=== PATIENT | female | born 1970 | race Caucasian/White ===

== ENCOUNTER 2023-08-31 13:31 | Emergency (ER) | payer OTHER, SELFPAY ==
--- NOTE | ~2023-08-31 | XR_ITS ---
XR shoulder RT min 2V 08/31/2023 14:20 Indication: Limited range of motion Procedure: 4 views right shoulder Comparison: No prior studies for comparison. Findings: There is polyarticular osteoarthritis, moderate-severe at the glenohumeral joint and mild a t the acromioclavicular joint. No acute fracture or traumatic malalignment. No soft tissue abnormalit y. No foreign bodies. Lung parenchyma unremarkable. Impression: 1: Polyarticular osteoarthritis. Reviewed, dictated and finalized at location A. NSE TRAVEL ADMINISTRATOR Impression: 1: Polyarticular osteoarthritis.
[2023-08-31 13:52] VITALS: BP 124/75; PULSE 81; RESP 18; TEMP 36.6; O2SAT 98
--- NOTE | 2023-08-31 14:34 | ED.GENADULT ---
HPI - General Adult General Chief complaint: Extremity Problem,Nontraumatic Stated complaint: right shoulder pain Source: patient Mode of arrival: ambulatory Limitations: no limitations History of Present Illness HPI narrative: Patient presents for evaluation of right shoulder pain. She has a history of pain in multiple joints. She has psoriasis so thinks she may have psoriatic arthritis. She woke sleep this morning with a new type of pain in her right shoulder. She cannot think of any recent precipitating cause or injury. She indicates she has injured herself unintentionally in the past while sleeping through certain movements. She states that it is sharp and shooting. She has been using a scarf as a sling. At rest her pain is 5/10 severity but increases to 9/10 with certain movements. She describes the pain as dull and aching. She takes meloxicam and gabapentin for chronic pain. Related Data Home Medications Medication Instructions Recorded Confirmed amphetamine sulfate 20 mg 20 mg PO BID 08/31/23 08/31/23 disintegrating tablet budesonide-formoterol HFA 80 1 puff inhalation ONCE 08/31/23 08/31/23 mcg-4.5 mcg/actuation aerosol inhaler (Symbicort) duloxetine 60 mg capsule,delayed 60 mg PO DAILY 08/31/23 08/31/23 release ergocalciferol (vitamin D2) 1,250 1,250 mcg PO WEEKLY 08/31/23 08/31/23 mcg (50,000 unit) capsule (Vitamin D2) estradiol 0.0375 mg/24 hr weekly 1 patch transdermal WEEKLY 08/31/23 08/31/23 transdermal patch lamotrigine 100 mg tablet 100 mg PO DAILY 08/31/23 08/31/23 (Lamictal) lamotrigine 100 mg tablet,extended 100 mg PO DAILY 08/31/23 08/31/23 release 24 hr meloxicam 15 mg tablet 15 mg PO DAILY 08/31/23 08/31/23 multivit with minerals-iron 18 1 tablet PO DAILY 08/31/23 08/31/23 mg-folic ac 400 mcg-vit K 25 mcg tablet (Adults Multivitamin) progesterone 50 mg/mL 5 mg IM DAILY 08/31/23 08/31/23 intramuscular oil thyroid (pork) 60 mg tablet 60 mg PO DAILY 08/31/23 08/31/23 ([place] Thyroid) tumeric 100 mg-nomi 150 mg-olive 1 cap PO DAILY 08/31/23 08/31/23 50 mg-oreg 150 mg-caprylate capsule Allergies Allergy/AdvReac Type Severity Reaction Status Date / Time hydrocodone AdvReac Vomiting Verified 08/31/23 14:20 Review of Systems Review of Systems: CONSTITUTIONAL: Denies fever, chills, or sweats. EYES: Denies visual changes, redness, or discharge. ENT: Denies rhinorrhea, congestion, sore throat, or otalgia. CARDIOVASCULAR: Denies chest pain, palpitations, or edema. RESPIRATORY: Denies cough or dyspnea. GASTROINTESTINAL: Denies abdominal pain, nausea, vomiting, or diarrhea. GENITOURINARY: Denies dysuria or hematuria. SKIN: Denies rash or itching. MUSCULOSKELETAL: Reports right shoulder pain. Denies neck and back pain NEUROLOGIC: Denies headache, numbness, dizziness, or weakness. PSYCHIATRIC: Denies anxiety or depression. PMFSH Past Medical History Medical History (Updated 08/31/23 @ 15:03 by MONIKA Ferreira, ) Anxiety Hypothyroidism Psoriasis Vitamin D deficiency Surgical History Surgical History No pertinent past surgical history Family History Family History Mother Family history non-contributory Social History Social History Smoking packs per day: 0.25 Smoking cigarettes per day: 5.0 Years smoked: 40 Smoking pack-years: 10.00 Smoking status: Current every day smoker Alcohol intake: current Alcohol use details: social Gender identity (if verbalized by the patient): Female Spiritual care concerns: No Exam Narrative: GENERAL: Well-appearing, well-nourished, and in no acute distress. HEAD: Normocephalic, atraumatic. EYES: PERRLA and EOMI. ENT: Nares clear, no rhinorrhea or epistaxis. Mucous membranes moist. Oropharynx witho
== END 2023-08-31 15:40 | disposition home or self-care (01) ==
PROVIDERS: Emergency Provider Nurse Practitioner
DX: S46.911A Strain of unspecified muscle, fascia and tendon at shoulder and upper arm level, right arm, initial encounter (principal); X58.XXXA Exposure to other specified factors, initial encounter; M19.011 Primary osteoarthritis, right shoulder; L40.9 Psoriasis, unspecified; E03.9 Hypothyroidism, unspecified; E55.9 Vitamin D deficiency, unspecified
CPT/HCPCS: 73030; 99213; G0463

== ENCOUNTER 2023-09-03 15:14 | Emergency (ER) | payer OTHER, SELFPAY ==
--- NOTE | ~2023-09-03 | XR_ITS ---
XR hand LT min 3V 09/03/2023 15:56 Indication: Left hand pain Procedure: 4 views left hand Comparison: No prior studies for comparison. Findings: There is mild polyarticular osteoarthritis. No fracture or traumatic malalignment. No signi ficant soft tissue abnormality. No foreign bodies. Impression: 1: No acute bone or joint abnormality. Reviewed, dictated and finalized at location B. LER INSTALLER Impression: 1: No acute bone or joint abnormality.
[2023-09-03 15:26] VITALS: BP 121/77; PULSE 83; RESP 16; TEMP 36.6; O2SAT 96
--- NOTE | 2023-09-03 15:38 | ED.EXTPRO ---
HPI - Extremity Problem General Chief complaint: Extremity Problem,Nontraumatic Stated complaint: left hand /wrist swollen pain Time Seen by Provider: 09/03/23 15:38 Source: patient and RN notes reviewed Mode of arrival: ambulatory Limitations: no limitations History of Present Illness HPI Narrative: 53-year-old female presents concern for left wrist and hand swelling and pain. Reports symptoms started yesterday. Reports she tried tramadol without relief. She reports her hand and wrist hurt when she bends her fingers. She has a history of carpal tunnel that she had surgery for. She is right-handed. She reports symptoms started yesterday after she was caring a grocery bag with 3 of her left fingers. She denies any injury or problems with that gross she back. She has history of psoriatic arthritis. MD Complaint: extremity pain and extremity swelling Related Data Home Medications Medication Instructions Recorded Confirmed amphetamine sulfate 20 mg 20 mg PO BID 08/31/23 08/31/23 disintegrating tablet budesonide-formoterol HFA 80 1 puff inhalation ONCE 08/31/23 08/31/23 mcg-4.5 mcg/actuation aerosol inhaler (Symbicort) duloxetine 60 mg capsule,delayed 60 mg PO DAILY 08/31/23 08/31/23 release ergocalciferol (vitamin D2) 1,250 1,250 mcg PO WEEKLY 08/31/23 08/31/23 mcg (50,000 unit) capsule (Vitamin D2) estradiol 0.0375 mg/24 hr weekly 1 patch transdermal WEEKLY 08/31/23 08/31/23 transdermal patch lamotrigine 100 mg tablet 100 mg PO DAILY 08/31/23 08/31/23 (Lamictal) lamotrigine 100 mg tablet,extended 100 mg PO DAILY 08/31/23 08/31/23 release 24 hr meloxicam 15 mg tablet 15 mg PO DAILY 08/31/23 08/31/23 multivit with minerals-iron 18 1 tablet PO DAILY 08/31/23 08/31/23 mg-folic ac 400 mcg-vit K 25 mcg tablet (Adults Multivitamin) progesterone 50 mg/mL 5 mg IM DAILY 08/31/23 08/31/23 intramuscular oil thyroid (pork) 60 mg tablet 60 mg PO DAILY 08/31/23 08/31/23 ([place] Thyroid) tumeric 100 mg-nomi 150 mg-olive 1 cap PO DAILY 08/31/23 08/31/23 50 mg-oreg 150 mg-caprylate capsule Allergies Allergy/AdvReac Type Severity Reaction Status Date / Time hydrocodone AdvReac Vomiting Verified 08/31/23 14:20 Review of Systems Review of Systems: CONSTITUTIONAL: Denies malaise, chills, sweats, or fever. CARDIOVASCULAR: Denies chest pain, palpitations, or edema. RESPIRATORY: Denies cough or dyspnea. SKIN: Denies rash or itching, bruising, redness, swelling. MUSCULOSKELETAL: Reports left wrist and hand pain and swelling NEUROLOGIC: Denies numbness, weakness All systems reviewed & are unremarkable except as noted in HPI and below PMFSH Past Medical History Medical History (Updated 09/03/23 @ 16:15 by Zuleika Jimenez NP) Anxiety Hypothyroidism Psoriasis Vitamin D deficiency Surgical History Surgical History No pertinent past surgical history Family History Family History Mother Family history non-contributory Social History Social History Smoking packs per day: 0.25 Smoking cigarettes per day: 5.0 Years smoked: 40 Smoking pack-years: 10.00 Smoking status: Current every day smoker Alcohol intake: current Alcohol use details: social Gender identity (if verbalized by the patient): Female Spiritual care concerns: No Comments At time of signature, agree with nursing past medical, surgical, social and family history. There is no relevant family history pertinent to the presenting complaint Exam Narrative: GENERAL: Well-appearing, well-nourished, and in no acute distress. HEAD: Normocephalic, atraumatic. EYES: PERRLA, conjunctivae clear NECK: Supple. CHEST: Speaks in full sentences. No respiratory distress. HEART: Regular rate and rhythm. Normal and equal peripheral pulses.
--- NOTE | 2023-09-03 16:32 | PC.NURSE ---
When leaving patient thought her gill was too tight. This nurse checked and gill was not tight. I was able to get three fingers under gill without stretching the gill
== END 2023-09-03 16:25 | disposition home or self-care (01) ==
PROVIDERS: Emergency Provider Nurse Practitioner
DX: M79.642 Pain in left hand (principal); F17.210 Nicotine dependence, cigarettes, uncomplicated; E03.9 Hypothyroidism, unspecified; L40.9 Psoriasis, unspecified; E55.9 Vitamin D deficiency, unspecified; L40.50 Arthropathic psoriasis, unspecified
CPT/HCPCS: 73130; 99213; G0463

== ENCOUNTER 2024-04-19 16:19 | Emergency (ER) | payer OTHER, SELFPAY ==
--- NOTE | ~2024-04-19 | CT_ITS ---
EXAMINATION: CT abdomen pelvis w con DATE: 04/19/2024 18:50 INDICATION: epigastric pain, hx pancreatitis TECHNIQUE: Computed tomography (CT) of the abdomen and pelvis was performed without intravenous contr ast. Automated exposure control and iterative reconstruction technique were employed. The dose-length product was 1377.40 mGy-cm. COMPARISON: None. FINDINGS: Lower thorax: Dependent left lower lobe tree-in-bud opacities. Left lower lung scarring. Liver: Normal. Biliary/Gallbladder: Gallbladder is normal. No bile duct dilation. Pancreas: Somewhat irregular, 2.2 cm area of hypoenhancement in the pancreatic head. No pancreatic du ct dilation Spleen: Normal. Adrenals:No mass. Kidneys: No suspicious mass, obstructing stone, or hydronephrosis. GI tract: Mild distal esophageal and gastric wall edema No small or large bowel dilation. Normal appe ndix. Diverticulosis without diverticulitis. Mesentery/Peritoneum: No ascites, mass, or free air. Retroperitoneum: No mass. Pelvis: Urinary bladder wall thickening. Fibroid uterus. Normal ovaries. Soft Tissues: Soft tissues and body wall unremarkable. Bones: No acute osseous finding. IMPRESSION: Irregular, 2.2 cm area of hypoenhancement in the pancreatic head, may represent a focus of acute mil y edema/necrosis, a resolving pancreatic collection, or tumor. Recommend MRI without and with contras t for further evaluation and comparison to outside studies if available. Mild esophagitis/gastritis. Cystitis versus urinary bladder wall thickening from incomplete distention. Reviewed, dictated and finalized at location K. IMPRESSION: Irregular, 2.2 cm area of hypoenhancement in the pancreatic head, may represent a focus of acute early edema/necrosis, a resolving pancreatic collection, or t umor. Recommend MRI without and with contrast for further evaluation and compar kwadwo to outside studies if available. Mild esophagitis/gastritis. Cystitis versus urinary bladder wall thickening from incomplete distention.
[2024-04-19 16:22] VITALS: BP 112/80; PULSE 86; RESP 20; TEMP 36.2; O2SAT 97
--- NOTE | 2024-04-19 16:26 | ED.NAVMDI ---
HPI - Nausea/Vomiting/Diarrhea General Chief complaint: Nausea/Vomiting/Diarrhea Stated complaint: pancreatitis - dx 2 weeks ago Time Seen by Provider: 04/19/24 16:26 Focused HPI: This is a 54-year-old female with recent diagnosis of acute pancreatitis another facility who presents to the ED for chief complaint of epigastric abdominal pain and nausea. Reports that the pain is been ongoing for a couple of weeks and seems to be consistent. It has not really increased. Pain stays across the upper abdomen and radiates somewhat into the back. States the biggest issue right now is being unable to tolerate solid foods. She has appointment scheduled with GI in the coming weeks. Denies fevers, chills, GI bleeding symptoms, diarrhea, chest pain, shortness of breath, cough. Also endorses recent UTI and has been taking Macrobid. GENERAL: Well-appearing, well-nourished, and in no acute distress. HEAD: Normocephalic, atraumatic. CHEST: Clear to auscultation. No respiratory distress. HEART: Regular rate and rhythm. NEURO: Alert and oriented x3. Patient screened in triage and initial orders placed. Additional care and disposition to be based upon diagnostic testing and treatment. Source: patient Mode of arrival: ambulatory Limitations: no limitations Related Data Home Medications Medication Instructions Recorded Confirmed amphetamine sulfate 20 mg 20 mg PO BID 08/31/23 08/31/23 disintegrating tablet budesonide-formoterol HFA 80 1 puff inhalation ONCE 08/31/23 08/31/23 mcg-4.5 mcg/actuation aerosol inhaler (Symbicort) duloxetine 60 mg capsule,delayed 60 mg PO DAILY 08/31/23 08/31/23 release ergocalciferol (vitamin D2) 1,250 1,250 mcg PO WEEKLY 08/31/23 08/31/23 mcg (50,000 unit) capsule (Vitamin D2) estradiol 0.0375 mg/24 hr weekly 1 patch transdermal WEEKLY 08/31/23 08/31/23 transdermal patch lamotrigine 100 mg tablet 100 mg PO DAILY 08/31/23 08/31/23 (Lamictal) lamotrigine 100 mg tablet,extended 100 mg PO DAILY 08/31/23 08/31/23 release 24 hr meloxicam 15 mg tablet 15 mg PO DAILY 08/31/23 08/31/23 multivit with minerals-iron 18 1 tablet PO DAILY 08/31/23 08/31/23 mg-folic ac 400 mcg-vit K 25 mcg tablet (Adults Multivitamin) progesterone 50 mg/mL 5 mg IM DAILY 08/31/23 08/31/23 intramuscular oil thyroid (pork) 60 mg tablet 60 mg PO DAILY 08/31/23 08/31/23 ([place] Thyroid) turmeric 100 mg-nomi 150 1 cap PO DAILY 08/31/23 08/31/23 mg-olive 50 mg-oreg 150 mg-capryl capsule Allergies Allergy/AdvReac Type Severity Reaction Status Date / Time hydrocodone AdvReac Vomiting Verified 08/31/23 14:20 [facility] Past Medical History Medical History (Updated 09/04/23 @ 00:00 by Nereida Silveira) Anxiety Hypothyroidism Psoriasis Vitamin D deficiency Surgical History Surgical History No pertinent past surgical history Family History Family History Mother Family history non-contributory Social History Social History Smoking packs per day: 0.25 Smoking cigarettes per day: 5.0 Years smoked: 40 Smoking pack-years: 10.00 Smoking status: Current every day smoker Alcohol intake: current Alcohol use details: social Gender identity (if verbalized by the patient): Female Spiritual care concerns: No Course Vital Signs Vital signs: Vital Signs Temperature 97.1 F L 04/19/24 16:22 Pulse Rate 86 04/19/24 16:22 Respiratory Rate 20 04/19/24 16:22 Blood Pressure 112/80 04/19/24 16:22 Pulse Oximetry 97 04/19/24 16:22 Oxygen Delivery Room Air 04/19/24 16:22 Temperature 97.1 F L 04/19/24 16:22 Pulse Rate 86 04/19/24 16:22 Respiratory Rate 20 04/19/24 16:22 Blood Pressure 112/80 04/19/24 16:22 Pulse Oximetry 97 04/19/24 16:22 Oxygen Delivery Room Air
[2024-04-19 16:58] LABS: Basophils Absolute Auto 0.1 K/mm3 (0.0-0.1); Basophils Percent Auto 0.5 % (0.2-1.2); Eosinophils Absolute Auto 0.1 K/mm3 (0-0.3); Eosinophils Percent Auto 1.3 % (0-4.4); Hematocrit 48.2 % (37.0-47.0); Hemoglobin 15.4 g/dL (12.0-15.0); Immature Granulocyte Absolute 0.03 K/mm3 (0.00-0.031); Immature Granulocyte Percent A 0.3 % (0-0.5); Lymphocytes Absolute Auto 1.08 K/mm3 (0.9-3.2); Lymphocytes Percent Auto 11.7 % (18.3-44.2); Mean Corpuscular Hemoglobin 29.2 pg (26-34); Mean Corpuscular Volume 91.5 fl (80-100); Monocytes Absolute Auto 0.7 K/mm3 (0.1-0.6); Monocytes Percent Auto 7.7 % (2.6-8.5); Neutrophils Absolute Auto 7.3 K/mm3 (1.3-6.7); Neutrophils Percent Auto 78.5 % (45.5-73.1); Platelet Count Result 359 k/mm3 (150-375); Red Blood Count 5.27 M/mm3 (4.2-5.4); Red Cell Distribution Width 12.9 % (11.5-14.5); White Blood Count 9.3 K/mm3 (4.5-10.0)
[2024-04-19 17:14] LABS: Alanine Aminotransferase 24 U/L (6-35); Albumin Level 4.8 g/dL (3.5-5.1); Alkaline Phosphatase 100 U/L (38-126); Anion Gap 11 mmol/L (4-12); Aspartate Amino Transferase 27 U/L (14-36); Bilirubin,Total 0.7 mg/dL (0.2-1.3); Blood Urea Nitrogen 11 mg/dL (7-17); Calcium 9.5 mg/dL (8.4-10.2); Carbon Dioxide 29 mmol/L (22-30); Chloride 97 mmol/L (98-107); Estimated CRCL calculation 85 ml/min; Estimated Glomerular Filt Rate > 60; Glucose 96 mg/dL (65-110); Lipase 47 U/L (23-300); Potassium 4.3 mmol/L (3.4-5.0); Sodium 137 mmol/L (137-145)
[2024-04-19 18:12] LABS: Appearance Urine Cloudy (Clear); Bacteria Urine 3+ /hpf; Bilirubin Urine Negative (Negative); Blood Urine Negative (Negative); Color Urine Dark Yellow (Yellow); Glucose Urine UA Negative (Negative); Ketones Urine 1+ mg/dL (Negative); Leukocyte Esterase Ur Trace LEU/UL (Negative); Nitrate Urine Negative (Negative); Protein Urine Negative (Negative); RBC Urine 0-2 /hpf (0-2); Specific Grav Ur 1.021 (1.001-1.035); Squamous Epithelial Cell Urine Many /hpf (Few); WBC Urine 21-50 /hpf (0-3); pH Urine 5.5 (5.0-9.0)
[2024-04-19 18:16] LABS: Add Urine Microscopic? YES
--- NOTE | 2024-04-19 18:22 | ED.ABDPAIN ---
HPI - Abdominal Pain General Chief Complaint: Nausea/Vomiting/Diarrhea Stated Complaint: pancreatitis - dx 2 weeks ago Time Seen by Provider: 04/19/24 16:26 Source: patient Mode of arrival: ambulatory Limitations: no limitations History of Present Illness HPI narrative: This is a 54-year-old female that presents to the emergency department for epigastric pain. Ongoing over the last several weeks. Reports she was evaluated for this at another ER. Diagnosed with pancreatitis. She has been on largely liquid diet for several weeks. She is continuing to have pain. She called her primary who prompted her to be seen in the ER. Denies fevers or vomiting. Related Data Home Medications Medication Instructions Recorded Confirmed amphetamine sulfate 20 mg 20 mg PO BID 08/31/23 08/31/23 disintegrating tablet budesonide-formoterol HFA 80 1 puff inhalation ONCE 08/31/23 08/31/23 mcg-4.5 mcg/actuation aerosol inhaler (Symbicort) duloxetine 60 mg capsule,delayed 60 mg PO DAILY 08/31/23 08/31/23 release ergocalciferol (vitamin D2) 1,250 1,250 mcg PO WEEKLY 08/31/23 08/31/23 mcg (50,000 unit) capsule (Vitamin D2) estradiol 0.0375 mg/24 hr weekly 1 patch transdermal WEEKLY 08/31/23 08/31/23 transdermal patch lamotrigine 100 mg tablet 100 mg PO DAILY 08/31/23 08/31/23 (Lamictal) lamotrigine 100 mg tablet,extended 100 mg PO DAILY 08/31/23 08/31/23 release 24 hr meloxicam 15 mg tablet 15 mg PO DAILY 08/31/23 08/31/23 multivit with minerals-iron 18 1 tablet PO DAILY 08/31/23 08/31/23 mg-folic ac 400 mcg-vit K 25 mcg tablet (Adults Multivitamin) progesterone 50 mg/mL 5 mg IM DAILY 08/31/23 08/31/23 intramuscular oil thyroid (pork) 60 mg tablet 60 mg PO DAILY 08/31/23 08/31/23 ([place] Thyroid) turmeric 100 mg-nomi 150 1 cap PO DAILY 08/31/23 08/31/23 mg-olive 50 mg-oreg 150 mg-capryl capsule Allergies Allergy/AdvReac Type Severity Reaction Status Date / Time hydrocodone AdvReac Vomiting Verified 08/31/23 14:20 Review of Systems Review of Systems: CONSTITUTIONAL: Denies fever GASTROINTESTINAL: Reports abdominal pain. Denies nausea, vomiting, or diarrhea. GENITOURINARY: Denies dysuria or hematuria. All systems reviewed & are unremarkable except as noted in HPI and below PMFSH Past Medical History Medical History (Updated 04/19/24 @ 21:39 by Christine Garcia PA-C) Anxiety Hypothyroidism Psoriasis Vitamin D deficiency Surgical History Surgical History (Reviewed 08/31/23 @ 14:39 by Desmond Ordonez, [facility], ) No pertinent past surgical history Family History Family History Mother Family history non-contributory Social History Social History Smoking packs per day: 0.25 Smoking cigarettes per day: 5.0 Years smoked: 40 Smoking pack-years: 10.00 Smoking status: Current every day smoker Alcohol intake: current Alcohol use details: social Gender identity (if verbalized by the patient): Female Spiritual care concerns: No Exam Narrative: GENERAL: Well-appearing, well-nourished, and in no acute distress. HEAD: Normocephalic, atraumatic. EYES: EOMI. CHEST: Clear to auscultation. No respiratory distress. No wheezes rales or rhonchi HEART: Regular rate and rhythm. No murmur heard. Normal peripheral pulses. ABDOMEN: Soft, nondistended, normal active bowel sounds. Mild tenderness to palpation epigastrium, without guarding EXTREMITIES: Normal range of motion. No edema. SKIN: Warm, dry, no rash. NEURO: No focal deficits. Alert and oriented x3. PSYCH: Normal mood and affect Course Course Emergency Course: Patient updated on her workup and recommendation for transfer for higher level of care. Consultations Consultation #1: Spoke with Dr. Grimes about patient and workup. He recommends transfer for higher level of care as patient
[2024-04-19] MEDS: ONDANSETRON INJ 4 MG/2 ML VIAL IV PUSH (18:34)
[2024-04-19] MEDS: SODIUM CHLORIDE 0.9% IV 1,000 ML 999 ML IV CONT ×2 (18:34→20:52)
[2024-04-19] MEDS: PANTOPRAZOLE SODIUM IV 40 MG VIAL IV PUSH (18:35)
[2024-04-19] MEDS: MORPHINE SULFATE (*CRX) 4 MG/ML INJ IV PUSH (18:37)
[2024-04-19 20:44] VITALS: BP 113/78; PULSE 77; RESP 20; TEMP 36.5; O2SAT 96
[2024-04-19] MEDS: BELLADONNA ALK/PHENOB ELIX 10 ML, MAG HYDROX/ALUMINUM HYD/SIMETH 30 ML, LIDOCAINE HCL 2... PO (20:58)
== END 2024-04-19 22:01 | disposition home or self-care (01) ==
PROVIDERS: Physician Assistant; Emergency Provider Physician Assistant
DX: K86.89 Other specified diseases of pancreas (principal); E03.9 Hypothyroidism, unspecified; E55.9 Vitamin D deficiency, unspecified; L40.9 Psoriasis, unspecified; F41.9 Anxiety disorder, unspecified; F17.210 Nicotine dependence, cigarettes, uncomplicated; Z79.899 Other long term (current) drug therapy; K20.90 Esophagitis, unspecified without bleeding; K29.70 Gastritis, unspecified, without bleeding; R93.41 Abnormal radiologic findings on diagnostic imaging of renal pelvis, ureter, or bladder
CPT/HCPCS: 36415; 74177; 80053; 81001; 83690; 85025; 87086; 87088; 96361; 96374; 96375; 99284; A9270; J2270; J2405; J2470; J7030; Q9967

== ENCOUNTER 2024-06-14 20:06 | Emergency (ER) | payer OTHER, SELFPAY ==
--- NOTE | ~2024-06-14 | CT_ITS ---
Clinical Indication: Shortness of breath CT Scan of the Chest with Contrast: Technique: Contiguous sections were acquired throughout the chest after intravenous administration of 100 cc of Omnipaque 350. Dose reduction technique was used on this scan by utilizing automated expos ure control and iterative reconstruction technique. The dose-length product (DLP) was 620.07 mGy-cm. Findings: There is no evidence of any significant mediastinal, hilar or axillary lymphadenopathy. There is no f illing defect in the pulmonary arterial tree to suggest pulmonary embolus. There is no evidence of ao rtic dissection or aneurysm. There is no evidence of pleural or pericardial effusion. The lungs are clear. No pulmonary nodules or infiltrates are noted. Bleb or cyst noted in the medial left upper lobe. There is left basilar pulmonary scarring. Images through the upper abdomen reveal, and bile duct stent and pneumobilia. Impression: No evidence of pulmonary embolus, aortic dissection, or aortic aneurysm. Pulmonary findings as above. No acute abnormality. Reviewed, dictated and finalized at [facility]. Impression: No evidence of pulmonary embolus, aortic dissection, or aortic aneurysm. Pulmonary findings as above. No acute abnormality.
--- NOTE | ~2024-06-14 | XR_ITS ---
Portable chest x-ray Comparison: None Clinical History: Shortness of breath Findings: Right-sided Mediport in place. Possible retrocardiac airspace disease. Possible COPD. Car diomediastinal silhouette is stable. Bones and soft tissues are unremarkable. Impression: Possible retrocardiac airspace disease. Correlate basilar atelectasis or pneumonia. Possible COPD. Right-sided Mediport. Reviewed, dictated and finalized at location M. Impression: Possible retrocardiac airspace disease. Correlate basilar atelectasis or pneumo ronald. Possible COPD. Right-sided Mediport.
[2024-06-14 20:11] VITALS: BP 121/74; PULSE 89; RESP 18; TEMP 36.5; O2SAT 91
--- NOTE | 2024-06-14 20:13 | ECG_ITS ---
Test Date: 2024-06-14 20:42:09 Measurements Intervals [place] Rate: 79 P: 45 NM: 132 QRS: 25 QRSD: 84 T: 59 QT: 339 QTc: 390 Interpretive Statements SINUS RHYTHM WITH SINUS ARRHYTHMIA LOW QRS VOLTAGE IN PRECORDIAL LEADS BASELINE ARTIFACT- I, II, V2 BORDERLINE ECG No previous ECG available for comparison Electronically Signed On 06-15-2024 05:38:20 CDT by Adis Alatorre D.O.
[2024-06-15] VITALS (43 sets, daily range): BP systolic 83–118; BP diastolic 52–94; PULSE 64–102; RESP 12–29; TEMP 36.4–36.8; O2SAT 89–100
[2024-06-15] MEDS: IPRATROPIUM 0.5 MG/ALBUTEROL SULFATE 2.5 MG AMPUL.NEB 3 ML INHALATION (01:33)
[2024-06-15 01:54] LABS: Basophils Absolute Auto 0.1 K/mm3 (0.0-0.1); Basophils Percent Auto 0.1 % (0.2-1.2); Eosinophils Absolute Auto 0.2 K/mm3 (0-0.3); Eosinophils Percent Auto 0.6 % (0-4.4); Hematocrit 40.8 % (37.0-47.0); Hemoglobin 13.1 g/dL (12.0-15.0); Immature Granulocyte Absolute 4.53 K/mm3 (0.00-0.031); Immature Granulocyte Percent A 11.9 % (0-0.5); Lymphocytes Absolute Auto 2.25 K/mm3 (0.9-3.2); Lymphocytes Percent Auto 5.9 % (18.3-44.2); Mean Corpuscular HGB Conc 32.1 g/dl (32-36); Mean Corpuscular Hemoglobin 29.8 pg (26-34); Mean Corpuscular Volume 92.7 fl (80-100); Mean Platelet Volume 8.7 fl (7.4-10.4); Monocytes Absolute Auto 0.3 K/mm3 (0.1-0.6); Monocytes Percent Auto 0.8 % (2.6-8.5); Neutrophils Absolute Auto 30.8 K/mm3 (1.3-6.7); Neutrophils Percent Auto 80.7 % (45.5-73.1); Platelet Count Result 261 k/mm3 (150-375); Red Cell Distribution Width 14.6 % (11.5-14.5); White Blood Count 38.2 K/mm3 (4.5-10.0)
[2024-06-15] MEDS: LORazepam INJ (*CRX) 2 MG/ML VIAL 0.5 MG IV PUSH ×2 (01:56→03:05)
[2024-06-15 02:05] LABS: Anisocytosis 1+; Platelet Estimate Adequate (Adequate); Schistocytes None Seen; Stomatocytes 1+
[2024-06-15 02:07] LABS: Alanine Aminotransferase 37 U/L (6-35); Albumin Level 3.9 g/dL (3.5-5.1); Alkaline Phosphatase 114 U/L (38-126); Anion Gap 5 mmol/L (4-12); Aspartate Amino Transferase 42 U/L (14-36); Bilirubin,Total 0.4 mg/dL (0.2-1.3); Blood Urea Nitrogen 15 mg/dL (7-17); Calcium 8.7 mg/dL (8.4-10.2); Carbon Dioxide 37 mmol/L (22-30); Chloride 94 mmol/L (98-107); Estimated CRCL calculation 97 ml/min; Estimated Glomerular Filt Rate > 60; Glucose 93 mg/dL (65-110); Potassium 3.6 mmol/L (3.4-5.0); Sodium 136 mmol/L (137-145)
[2024-06-15 02:16] LABS: NT Pro B Type Natriuretic Pept 432 pg/mL (19.9-100)
[2024-06-15 02:18] LABS: Troponin I < 0.012 ng/mL (0.000-0.034)
[2024-06-15 03:19] LABS: Lactic Acid Reflex 2.2 mmol/L (0.7-2.0)
[2024-06-15 03:25] LABS: Procalcitonin 0.1 ng/mL
[2024-06-15 03:28] LABS: BEDSIDEPREGUCG Negative (Negative)
[2024-06-15 03:29] LABS: Add Urine Microscopic? NO; Appearance Urine Clear (Clear); Bilirubin Urine Negative (Negative); Blood Urine Negative (Negative); Color Urine Yellow (Yellow); Glucose Urine UA Negative (Negative); Ketones Urine Negative (Negative); Leukocyte Esterase Ur Negative LEU/UL (Negative); Nitrate Urine Negative (Negative); Protein Urine Negative (Negative); Specific Grav Ur 1.017 (1.001-1.035); Urobilinogen Urine 0.2 mg/dL (<2.0); pH Urine 6.5 (5.0-9.0)
[2024-06-15 03:34] LABS: Influenza A QL RT-PCR Negative (Negative); Influenza B QL RT-PCR Negative (Negative); RSV RNA, RT-PCR Negative (Negative); SARS-CoV-2 RNA PCR Negative (Negative)
--- NOTE | 2024-06-15 03:52 | ED.GENADULT ---
HPI - General Adult General Chief complaint: Shortness of Breath/Dyspnea <Reji Martin MD - Last Filed: 06/15/24 03:54> Stated complaint: shortness of breath <Reji Martin MD - Last Filed: 06/15/24 03:54> Time Seen by Provider: 06/15/24 01:20 <Reji Martin MD - Last Filed: 06/15/24 03:54> History of Present Illness HPI narrative: Patient 54-year-old female who presents emergency department with chief complaint of shortness of breath and cough. Patient reports that she was recently treated for bronchitis and coughing green sputum the patient states that she has had a subjective fever at home reports that she has not been feeling well and feels as though she is short of breath the patient reports she is currently on chemotherapy and completed a round over the weekend and at the and had a Neupogen shot the patient reports that she has had to come the emergency department for evaluation this evening. <Reji Martin MD - Last Filed: 06/15/24 03:54> Related Data Home medications: Home Medications Medication Instructions Recorded Confirmed amphetamine sulfate 20 mg 20 mg PO BID 08/31/23 08/31/23 disintegrating tablet budesonide-formoterol HFA 80 1 puff inhalation ONCE 08/31/23 08/31/23 mcg-4.5 mcg/actuation aerosol inhaler (Symbicort) duloxetine 60 mg capsule,delayed 60 mg PO DAILY 08/31/23 08/31/23 release ergocalciferol (vitamin D2) 1,250 1,250 mcg PO WEEKLY 08/31/23 08/31/23 mcg (50,000 unit) capsule (Vitamin D2) estradiol 0.0375 mg/24 hr weekly 1 patch transdermal WEEKLY 08/31/23 08/31/23 transdermal patch lamotrigine 100 mg tablet 100 mg PO DAILY 08/31/23 08/31/23 (Lamictal) lamotrigine 100 mg tablet,extended 100 mg PO DAILY 08/31/23 08/31/23 release 24 hr meloxicam 15 mg tablet 15 mg PO DAILY 08/31/23 08/31/23 multivit with minerals-iron 18 1 tablet PO DAILY 08/31/23 08/31/23 mg-folic ac 400 mcg-vit K 25 mcg tablet (Adults Multivitamin) progesterone 50 mg/mL 5 mg IM DAILY 08/31/23 08/31/23 intramuscular oil thyroid (pork) 60 mg tablet 60 mg PO DAILY 08/31/23 08/31/23 ([place] Thyroid) turmeric 100 mg-nomi 150 1 cap PO DAILY 08/31/23 08/31/23 mg-olive 50 mg-oreg 150 mg-capryl capsule <Reji Martin MD - Last Filed: 06/15/24 03:54> Allergies/adverse reactions: Allergies Allergy/AdvReac Type Severity Reaction Status Date / Time hydrocodone AdvReac Vomiting Verified 08/31/23 14:20 <Reji Martin MD - Last Filed: 06/15/24 03:54> Review of Systems Review of Systems: A 10 system review of systems was completed on the patient and is negative except for what is stated in the HPI. Nursing and ancillary documentation was reviewed. <Reji Martin MD - Last Filed: 06/15/24 03:54> [facility] Past Medical History Medical History: Medical History Anxiety Hypothyroidism Psoriasis Vitamin D deficiency <Reji Martin MD - Last Filed: 06/15/24 03:54> Surgical History Surgical History: Surgical History No pertinent past surgical history <Reji Martin MD - Last Filed: 06/15/24 03:54> Family History Family History: Family History Mother Family history non-contributory <Reji Martin MD - Last Filed: 06/15/24 03:54> Social History Social History: Social History Smoking packs per day: 0.25 Smoking cigarettes per day: 5.0 Years smoked: 40 Smoking pack-years: 10.00 Smoking status: Current every day smoker Alcohol intake: current Alcohol use details: social Gender identity (if verbalized by the patient): Female Spiritual care concerns: No <Benoit
[2024-06-15 05:54] LABS: Reflex Lactic Acid Yes or No Add Lactic
[2024-06-15] MEDS: MORPHINE SULFATE (*CRX) 30 MG TABCR PO (07:20)
== END 2024-06-15 09:44 | disposition home or self-care (01) ==
PROVIDERS: Emergency Provider Emergency Medicine; PCP Family Medicine
DX: J40 Bronchitis, not specified as acute or chronic (principal); Z20.822 Contact with and (suspected) exposure to COVID-19; C80.1 Malignant (primary) neoplasm, unspecified; E03.9 Hypothyroidism, unspecified; E55.9 Vitamin D deficiency, unspecified; F41.9 Anxiety disorder, unspecified; F17.210 Nicotine dependence, cigarettes, uncomplicated; Z79.899 Other long term (current) drug therapy; Z79.60 Long term (current) use of unspecified immunomodulators and immunosuppressants; Z79.890 Hormone replacement therapy; R94.31 Abnormal electrocardiogram [ECG] [EKG]
CPT/HCPCS: 36415; 71045; 71275; 80053; 81003; 81025; 83605; 83880; 84145; 84484; 85025; 87040; 87637; 93005; 94640; 96374; 96375; 99284; A9270; J2060; Q9967